=== PATIENT | male | born 2000 | race Caucasian/White ===

== ENCOUNTER 2024-06-20 12:30 | Outpatient (CLI) | payer OTHER ==
--- NOTE | 2024-06-20 15:46 | XRAY Report ---
Hand 3+V RT HISTORY: 24 years of age, HAND PAIN, RIGHT TECHNIQUE: Hand 3+V RT COMPARISON: None. FINDINGS/IMPRESSION: No acute fracture or dislocation. Joint spaces are well maintained. Sclerotic lesion in the proximal scaphoid, nonspecific and may represent a bone island. Reviewed by: Cindy Kelly MD on 06/20/2024 3:44 PM PDT Approved by: Cindy Kelly MD on 06/20/2024 3:44 PM PDT Station ID: [id number]
== END 2024-06-20 12:45 | disposition home or self-care (01) ==
LOC: DI.N 12:30
PROVIDERS: ATTEND Physician Assistant Medical
DX: M79.641 Pain in right hand (principal); M89.8X3 Other specified disorders of bone, forearm